=== PATIENT | male | born 1985 | race Caucasian/White ===

== ENCOUNTER 2016-12-20 20:16 | Emergency (ER) | payer SELFPAY ==
[~2016-12-20] VITALS: Ht 170.2 cm; Wt 111.1 kg
[2016-12-20 20:43] VITALS: BP 115/73
--- NOTE | 2016-12-20 21:35 | NUR ---
PT TAKEN TO BED 4
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
--- NOTE | 2016-12-20 22:15 | NUR ---
Dr. Spangler evaluating patient at bedside.
--- NOTE | 2016-12-20 22:45 | NUR ---
Patient discharged with v/s stable BY DR. HUNG. Written and verbal after care instructions given and explained. Patient verbalized understanding. Ambulatory with steady gait. All questions addressed prior to discharge. Advised to follow up with PMD.
[2016-12-20 22:51] VITALS: BP 112/69
== END 2016-12-20 22:45 | disposition home or self-care (01) ==
LOC: MED 20:16
DX: S61.215A Laceration without foreign body of left ring finger without damage to nail, initial encounter (principal); W26.0XXA Contact with knife, initial encounter; Y93.89 Activity, other specified; Y92.89 Other specified places as the place of occurrence of the external cause; Y99.8 Other external cause status